=== PATIENT | female | born 1975 | race Hispanic/Latino ===

== ENCOUNTER 2016-11-17 08:03 | Emergency (ER) | payer SELFPAY ==
[2016-11-17] MEDS ORDERED: Acetaminophen/Codeine 30-300mg Tablet ONE (08:34)
--- NOTE | 2016-11-17 08:44 | RAD ---
CHEST 2 VIEWS: Date: 11/17/16 HISTORY: Chest pain. FINDINGS: No comparison. The cardiac silhouette and pulmonary vasculature are unremarkable. Mediastinum is midline. There is no confluent air space consolidation, pneumothorax, or pleural fluid evident. IMPRESSION: No active cardiopulmonary abnormalities are demonstrated. POS: [facility]
== END 2016-11-17 08:55 | disposition home or self-care (01) ==
LOC: MADERS 08:03
DX: S20.211A Contusion of right front wall of thorax, initial encounter (principal); V89.2XXA Person injured in unspecified motor-vehicle accident, traffic, initial encounter; W22.12XA Striking against or struck by front passenger side automobile airbag, initial encounter
CPT/HCPCS: 71020